=== PATIENT | female | born 1965 | race African-American/Black ===

== ENCOUNTER → 2017-11-09 | Outpatient (CLI) | payer MEDICAID ==
[~2017-11-09] MED LIST: BENTYL20 M1 PO; ESTRADIOL1 MG OR; GLIPIZIDE10 MG PO; LISINOPRIL HCTZ1 TAB PO; MEDROXYPROGESTER5 MG PO; METFORMIN ER500 MG PO; OMEPRAZOLE20 MG PO; PHENERGAN W/CO473 ML PO
[2017-11-09 17:08] LABS: HEMOGLOBIN 13.6 g/dL (12.2-16.2); LYMPH # 2.4 K/mm3 (0.7-4.5); LYMPH % 26.4 % (10-50.0)
[2017-11-09 17:51] LABS: BUN 14 mg/dL (7-18)
[2017-11-09 17:52] LABS: GFR (ESTIMATED) 88 ML/MIN (59-)
[2017-11-11 09:37] LABS: Creatinine, Urine 113.3 mg/dL (Not Estab.); Microalbumin, Urine 50.1 ug/mL (Not Estab.)
== END ==
LOC: LAB 15:49
PROVIDERS: Nurse Practitioner Family
DX: E11.9 Type 2 diabetes mellitus without complications (principal)